=== PATIENT | male | born 1980 | race African-American/Black ===

== ENCOUNTER → 2016-12-29 | Outpatient (CLI) | payer OTHER ==
--- NOTE | 2017-01-11 01:03 | ECWPNPC ---
PATIENT NAME: SATINDER WATTERS : 1980 GENDER: MALE MRN: VISIT DATE: 12/29/2016 DISCHARGE DATE: 12/29/16 1444 VISIT LOCKED DATE TIME: PHYSICIAN: HALLE HALL RESOURCE: HALLE HALL REASON FOR APPOINTMENT 1. CHRONIC PAIN HISTORY OF PRESENT ILLNESS FALL RISK SCREENING: SCREENING :NO FALLS IN THE PAST YEAR 36 YEAR OLD MALE PATIENT WITH HISTORY OF CHRONIC BACK PAIN. PATIENT DESCRIBES THE PAIN ACHING, BURNING, TENDER, THROBBING, AND SHOOTING WITH A PAIN SCORE OF 4/10 ON TODAY'S VISIT. 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 PATIENT REPORTS THAT HE HAS NUMBNESS, TINGLING AND SWELLING IN HIS FEET AND RADIATING PAIN FROM HIS BACK. 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 PATIENT STATES THAT HE HAS NOT HAD ANY BACK SURGERIES. PATIENT STATES THAT HIS RIGHT LEG HURTS MORE THAN HIS LEFT LEG. PATIENT STATES THAT STANDING, WALKING, AND SITTING FOR A PROLONGED PERIOD OF TIME WILL INCREASE HIS PAIN. PATIENT STATES THAT HE HAS DIFFICULTIES SLEEPING AT NIGHT DUE TO THE DISCOMFORT OF THE PAIN. PATIENT STATES THAT HE HAS HAD INJECTIONS ABOUT 2 MONTHS AGO AT THE [facility], AND IT ONLY MADE THE PAIN WORST. PATIENT REPORTS THAT HE HAS TRIED GABAPENTIN IN THE PAST AND DID NOT NOTICE A CHANGE IN HIS PAIN LEVELS. PATIENT DENIES UNEXPLAINABLE WEIGHT LOSS, FEVER, CHILLS, NEW CHANGES ON HIS URINARY OR BOWEL CONTROL. PAIN SCREENING: PATIENT HAS A COMPLAINT OF ACUTE OR CHRONIC PAIN :YES CURRENT MEDICATIONS TAKING ZOLOFT 50 MG TABLET 2 TABLET ORALLY ONCE A DAY TAKING TIZANIDINE HCL 4 MG TABLET 1 TABLET NEEDED ORALLY FOUR TIMES DAILY NEEDED TAKING MULTIVITAMIN ADULT - TABLET ORALLY TAKING MELATONIN 3 MG TABLET 1 TABLET AT BEDTIME NEEDED WITH FOOD ORALLY ONCE A DAY TAKING GLUCOSAMINE 500 MG CAPSULE 1 CAPSULE WITH A MEAL ORALLY ONCE A DAY TAKING AMBIEN 10 MG TABLET 1 TABLET AT BEDTIME NEEDED ORALLY ONCE A DAY TAKING XALATAN 0.005 % SOLUTION 1 DROP INTO AFFECTED EYE IN THE EVENING OPHTHALMIC ONCE A DAY TAKING LOTREL 10-20 MG CAPSULE ORALLY DISCONTINUED AMLODIPINE BESYLATE 5 MG TABLET 1 TABLET ORALLY ONCE A DAY DISCONTINUED LOTREL 2.5-10 MG CAPSULE ORALLY MEDICATION LIST REVIEWED AND RECONCILED WITH THE PATIENT PAST MEDICAL HISTORY HYPERTENSION GLAUCOMA CHRONIC BACK PAIN ANXIETY ALLERGIES N.K.D.A. SURGICAL HISTORY BILATERAL FASCIOTOMY BOTH LEGS 01/2015 LIPOMA X 3 2004, 2012, 2009 FAMILY HISTORY FATHER: 55 YRS, DIAGNOSED WITH HYPERTENSION, CANCER MOTHER: ALIVE, DIAGNOSED WITH HYPERTENSION, CANCER 1 SON(S) , 4 DAUGHTER(S) - HEALTHY. FATHER FROM THROAT CANCER, MOM HAD THYROID CANCER. SOCIAL HISTORY GENERAL: TOBACCO USE ARE YOU A: NEVER SMOKER OCCUPATION: ACTIVE DUTY. DIET: REGULAR. EXERCISE: DAILY. MARITAL STATUS: . ADVANCED DIRECTIVES HEALTH CARE PROXY? NO ADVANCED DIRECTIVES HOSPITALIZATION/MAJOR DIAGNOSTIC PROCEDURE CHEST PAIN REVIEW OF SYSTEMS CONSTITUTIONAL: ANY CHANGE IN YOUR MEDICAL CONDITION? NO . CHILLS NO . FEVER NO . INFECTION: DO YOU HAVE NEW INFECTIONS? NO . DO YOU HAVE HISTORY OF MRSA? NO . MUSCULOSKELETAL: ANY NEW PATTERNS OF PAIN OR NUMBNESS? YES PT REPORTS INCREASED PAIN . SYTEMIC LUPUS NO . GASTROENTEROLOGY: ANY NEW CHANGE IN BOWEL CONTROL? NO . BARRETTS ESOPHAGUS NO . CIRRHOSIS NO . HEPATITIS NO . LIVER FAILURE NO . ACID REFLUX NO . UNEXPLAINED WEIGHT LOSS NO . GENITOURINARY: ANY NEW CHANGE IN BLADDER CONTROL? NO . IS THERE A CHANCE YOU COULD BE ? NO . HEMATOLOGY/LYMPH: DO YOU TAKE ANY BLOOD THINNERS? (FOR EXAMPLE- COUMADIN, PLAVIX, AGGRENOX, PLATEL, PRADAXA, OR XARELTO) NO . WHEN WAS YOUR LAST DOSE? DATE: TIME: . LOW PLATELET COUNT NO . SICKLE CELL DISEASE NO . VON WILLIEBRANDS NO . FACTOR V LEIDEN NO . THALLASEMIA NO . ANEMIA NO . EASY BRUISING NO . NEUROLOGY: HAVE YOU FALLEN IN THE PAST 6 MONTHS? NO . ANY NEW EXTREMITY NUMBNESS OR WEAKNESS? NO . HEAD INJURY NO . DEMENTIA NO . CEREBRAL PALSY NO . MULTIPLE SCLEROSIS NO . DIZZINESS NO . HEADACHE NO . STROKES NO . VERTIGO NO . CARDIOLOGY: DO YOU HAVE A PACEMAKER OR DEFIBRILLATOR? NO . ANGINA NO . HEART ATTACK NO . HEART SURGERY NO . CONGESTIVE HEART FAILURE/FLUID OVERLOAD NO . CHEST PAIN NO . HIGH BLOOD PRESSURE ON MEDICATION(S) . IRREGULAR HEART BEAT NO . RESPIRATORY: HAVE YOU BEEN SICK IN THE PAST WEEK? NO . FEVER NO . FLU LIKE SYMPTOMS? NO . CPAP NO . BYPAP NO . ASTHMA NO . EMPHYSEMA NO . CHRONIC LUNG DISEASES NO . SHORTNESS OF BREATH ON EXERTION NO . COUGH NO . SNORING NO . INTEGUMENTARY: DO YOU HAVE ANY RASHES OR OPEN SORES? NO . ALLERGIC/IMMUNO: ARE YOU ALLERGIC TO SHELLFISH OR IV DYE? NO . ANY NEW ALLERGIES? NO . PSYCHIATRIC: DO YOU HAVE THOUGHTS OF HURTING YOURSELF OR SOMEONE ELSE? NO . ARE YOU ABUSED, NEGLECTED, OR IN AN UNSAFE ENVIRONMENT? NO . ENDOCRINOLOGY: ARE YOU DIABETIC? NO . THYROID DISORDER NO . OTHER: DO YOU NEED ANY PRESCRIPTIONS? NO . IF YES, PLEASE LIST: ____ . ANY NEW PROBLEMS WITH YOUR MEDICATIONS? NO . WHEN DID YOU LAST EAT? ____ . WHEN DID YOU LAST DRINK? ____ . WHAT DID YOU LAST DRINK? ____ . NAME OF PERSON DRIVING YOU HOME? ____ . DO YOU HAVE ANY OTHER QUESTIONS OR CONCERNS NO . REVIEWED BY: PROVIDER: HALLE HALL MD . VITAL SIGNS WT 236.4 LBS, HT 71", BMI 32.97 INDEX, BP 154/77 MM HG, HR 77 /MIN, RR 16 /MIN, TEMP 97.9 F, OXYGEN SAT % 97%, SAFE IN ENV? (Y/N) YES, NA INITIALS TL 1313, REVIEWED BY: NANCY. EXAMINATION : PATIENT IS ALERT O X 3 AND COOPERATIVE. PATIENT AMBULATES WITH A NORMAL GAIT. PATIENT IS ABLE TO FLEX HIS BACK TO 90 DEGREES AND EXTEND TO 15 DEGREES WITH DISCOMFORT AND PAIN. THERE IS TENDERNESS IN THE LUMBAR PARASPINAL MUSCLE GROUP ESPECIALLY ON THE RIGHT SIDE. PATIENT'S RIGHT LEG IS WEAKER ESPECIALLY AT FLEXION. 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 ASSESSMENTS INTERVERTEBRAL DISC DISORDERS WITH RADICULOPATHY, LUMBAR REGION - M51.16 (PRIMARY) TREATMENT INTERVERTEBRAL DISC DISORDERS WITH RADICULOPATHY, LUMBAR REGION NOTES: WE DISCUSSED SEVERAL ISSUES WITH MR. WATTERS'S PAIN MANAGEMENT CASE. AT THIS TIME I WILL HAVE THE PATIENT START ON GABAPENTIN 300 MG TABLETS TO TACKLE THE ISSUE OF DIFFICULTIES SLEEPING AT NIGHT. I DISCUSSED WITH THE PATIENT TO TRY THE ONE TABLET AT NIGHT AND IF THAT DOES NOT WORK WE CAN PROCEED WITH INCREASING GABAPENTIN TO TWICE A DAY. AFTER EXAMINING THE PATIENT AND REVIEWING THE MRI, PATIENT IS A GOOD CANDIDATE FOR A LESI. WE DISCUSSED THE RISKS, BENEFITS, AND ALTERNATIVES AND THE PATIENT WOULD LIKE TO PROCEED. PATIENT WILL BE BOOKED PENDING APPROVAL. INSTRUCTIONS WERE GIVEN, QUESTIONS WERE ANSWERED, PATIENT REPORTS UNDERSTANDING AND AGREES WITH THE PLAN. I, ANAIS NARANJO, DOCUMENTED THE ABOVE INFORMATION ACTING A SCRIBE FOR DR. HALL. I HAVE REVIEWED THE ABOVE DOCUMENT, WRITTEN BY ANAIS NARANJO SCRIBE AND I VERIFY THAT IT IS ACCURATE. OTHERS START GABAPENTIN CAPSULE, 300 MG, 1 CAPSULE, ORALLY FOR PAIN, BEFORE BEDTIME, 30 DAY(S), 30, REFILLS 1 PREVENTIVE MEDICINE PAIN CLINIC TEACHING: MEDICATIONS PATIENT DECLINED INFORMATION ON GABAPENTIN STATING HE IS FAMILIAR WITH THE MEDICATION.. PROCEDURE TEACHING PATIENT DECLINED PRINTED INFORMATION ON LUMBAR EPIDURAL STATING HE HAS HAD THEM AND IS FAMILIAR WITH THE PROCEDURE. PRE-PROCESDURE INSTRUCTIONS REVIEWED WITH PATIENT AND HE VERBALIZED UNDERSTANDING. PROCEDURE CODES FA211 ESTABILISHED PATIENT [facility] CHARGE [id number] PAIN ASSESS POS TOOL F/U PLAN DOC G8427 DOC MEDS VERIFIED W/PT OR RE DISPOSITION & COMMUNICATION FOLLOW UP LESI PENDING APPROVAL ELECTRONICALLY SIGNED BY HALLE HALL MD ON 01/10/2017 AT 08:15 AM EDT DISCLAIMER : THIS IS A VISIT SUMMARY EXTRACTED FROM THE [employer] CHART. IT IS NOT A COPY OF THE [employer] PROGRESS NOTE. ZANAD
== END | disposition home or self-care (01) ==
LOC: M PAIN 13:00
PROVIDERS: ATTEND Anesthesiology
DX: G89.29 Other chronic pain (principal); M51.16 Intervertebral disc disorders with radiculopathy, lumbar region; I10 Essential (primary) hypertension; F41.9 Anxiety disorder, unspecified; H40.9 Unspecified glaucoma; Z79.899 Other long term (current) drug therapy